=== PATIENT | female | born 1980 | race Caucasian/White ===

== ENCOUNTER 2016-12-24 07:59 | Emergency (ER) | payer OTHER ==
[~2016-12-24] VITALS: Ht 154.9 cm; Wt 90.5 kg
[2016-12-24 08:02] VITALS: BP 121/78; PULSE 72; RESP 12; O2SAT 99
--- NOTE | 2016-12-24 08:23 | ED.REPORT ---
HPI-Extremity Problem Upper Date of Service Dec 24, 2016 ED Provider: Evon Burnham MD 36 year old female presents to the ER via EMS due to persistent pain and numbness of her left arm status post being kicked by her horse 4 days ago, markedly worsening today upon awakening with "indescribable pain". She reports worsening bruising about her left upper arm, with a sensation of numbness and tingling extends down to her wrist and fingers. Associated symptom of left shoulder and neck pain secondary to the incident. Symptoms have been treated with Aleve with no relief. Nursing Notes Stated Complaint: PAIN IN LEFT ARM DUE TO INJURY Chief Complaint: Extremity Trauma Nursing Notes Reviewed: Yes Allergies: Coded Allergies: No Known Allergies (Unverified , 12/24/16) Scheduled PRN Naproxen (Naproxen) 500 Mg Tab 500 MG PO BID PRN PRN For Pain oxyCODONE-Acetaminophen 5-325 mg (oxyCODONE-Acetaminophen 5-325 mg) 1 Each Tablet 1-2 TAB PO Q6H PRN PRN For Pain General Time Seen by MD: 08:20 Chief Complaint Arm injury left Hx Obtained From: Patient Arrived By: Ambulance Onset Occurred: 4 days ago Symptom Duration: Since onset Caused by: Kicked (by horse) Context: Occurred at: Home injury Location: : Arm left: Shoulder left Quality: Painful Severity: Current: Moderate Severity: Maximum: Moderate Pertinent Negative: Pt denies other symptoms Exacerbated by: Range of motion Recent Healthcare: Recent doctor visit Past Medical History Past Medical History Healthy Ambulatory Status Independent Review of Systems Musculoskeletal: Reports: Extremity pain (Left arm), Joint pain (Left shoulder) , Denies: Back pain, Lumbar pain, Neck pain, Thoracic pain Neurologic: Reports: Numbness (Left arm), Denies: Headache Complete sys rev & neg: except as marked. Physical Exam Initial Vital Signs Vital Signs (First) Date Time Temp Pulse Resp B/P Pulse Ox O2 Delivery O2 Flow Rate FiO2 12/24/16 08:02 36.3 72 12 121/78 99 Room Air Initial VS: Reviewed Head / Eyes: Atraumatic, Normocephalic Respiratory: Breath sounds normal, Clear to auscultation, No respiratory distress Cardiovascular: Regular rate & rhythm, Heart sounds normal, Intact distal pulses Abdomen / GI: Soft, Non-tender, No guarding, No rebound, No distention Lower Extremities: Vascular intact, Neuro intact, No swelling, No tenderness Skin: Warm, Dry, No cyanosis Neurologic: Alert, Oriented, Nonfocal General/Constitutional: Awake, Alert, Well developed, Well nourished Neck: Full range of motion, No midline vertebral tend Left upper trapezius spasm. Tenderness of the left occipital insertion. Upper Extremity / MS: Full range of motion, Neurologic intact, Vascular intact Left Upper Arm: Positive: Ecchymosis present, Swelling present..., Tenderness present... (Moderate) 8x4cm healing hematoma on the backside of Left upper arm, extending into elbow, particularly around the ulnar nerve. Re-Eval/Medical Decision Med Decision/Clinical Course Large hematoma on the posterior aspect of the left humerus. Edema and clot is settling down toward the elbow. She has some positional symptoms suggesting that clot and edema are affecting her ulnar nerve. There is no evidence of compartment syndrome. She has fully functional neurovascular status of the arm and hand Source of Hx: Old records Re-Evaluation/Progress : Time of Eval: 09:05 Re-Evaluation/Progress Note: Completed physical examination and plan to discharge. Patient understands and agrees to the plan. Return precautions given. All other questions addressed. Counseled Regarding: Diagnosis, Need for follow-up, When/why to return to ED Discharge & Departure Impression: Primary Impression: Hematoma of arm Additional Impression: Ulnar nerve impingement Ruled Out: Compartment syndrome Disposition: Home Discharge Condition All VS Reviewed: Yes Condition: Stable Patient Instructions: Contusions in Adults (ED), Muscle Strain (ED) Additional Instructions: Gently massage the area as tolerated. Use heat to help break up the hematoma. Activity and range of motion as tolerated. Take 1 naprosen in the morning, and 1 at night as directed. The neck, shoulder and upper back pain are all from the acute strain - basically whiplash from the side. Ice can help with the inflammation here. Again, moving is helpful Use oxycodone as directed for severe pain. Do not drive or consume alcohol while taking narcotic pain medications. Return to the ER if you develop worsening or concerning symptoms. So sorry you toughed out the pain for so long. I hope you heal well Scribe Attestation Portions of this note were transcribed by Anthony Garcia. I, Dr. Burnham, personally performed the history, physical exam and medical decision-making; I reviewed and confirmed the accuracy of the information in the transcribed note. Signed by: Marco Antonio Clement, 12/24/2016 and 09:56 Evon Burnham MD Dec 24, 2016 08:23 ANTHONY GARCIA Dec 24, 2016 08:31
[2016-12-24] MEDS ORDERED: NPR500T PO (09:18)
[2016-12-24] MEDS ORDERED: OXYC1TAB24 PO (09:18)
[2016-12-24 09:32] VITALS: BP 112/76; PULSE 64; RESP 18; O2SAT 100
== END 2016-12-24 09:36 | disposition home or self-care (01) ==
LOC: SED 07:59
DX: S40.022A Contusion of left upper arm, initial encounter (principal); S44.02XA Injury of ulnar nerve at upper arm level, left arm, initial encounter; W55.12XA Struck by horse, initial encounter; Y93.9 Activity, unspecified; Y92.009 Unspecified place in unspecified non-institutional (private) residence as the place of occurrence of the external cause; Y99.9 Unspecified external cause status